=== PATIENT | male | born 1980 | race Two or more races ===

== ENCOUNTER 2022-11-17 15:42 | Outpatient (AMB) | payer SELFPAY ==
--- NOTE | 2022-11-17 15:55 | MHC.OFFWIV ---
Intake Vital Signs 11/17/22 15:58 BP 136/90 H Blood Pressure Location Rt brachial Position Sitting Pulse 74 Pulse Source Pulse Oximeter Pulse Oximetry (%) 98 Oxygen Delivery Method Room Air Intake Visit Reasons: [employer], Left Lower Arm Rash Intake Note: Patient here for possible poison mariama on left lower arm, he was doing some gardening work which was last thursday. He has tried topical ointment to help with irritation. Patient Tobacco Use Status: Never used Tobacco Allergies No Known Allergies Allergy (Verified 11/17/22 16:22) Medication List - Last Reconciled 11/17/22 by Juan Jaffe MD No Known Home Meds Do you need a note to return to daycare/school/sports/work: No HPI [employer], Left Lower Arm Rash HPI Details 42-year-old male presents to the office for a sick visit. Patient was working in his yd a few days ago and has broken out into a rash. The rash is all over his forearms and arms. Symptoms of itchiness present. [facility] Social History Patient Tobacco Use Status: Never used Tobacco Physical Exam Vital Signs: Last Vital Signs Pulse 74 11/17/22 15:58 BP 136/90 H 11/17/22 15:58 Pulse Ox 98 11/17/22 15:58 Oxygen Delivery Method Room Air 11/17/22 15:58 Skin Other: Erythematous vesicular rash on the forearm, torso and upper back. Assessment & Plan Assessment & Plan (1) Contact dermatitis: Code(s): L25.9 - Unspecified contact dermatitis, unspecified cause Plan: Tapering steroids prescribed. Patient was advised to use calamine lotion. If symptoms not better to follow-up here. Coding Level of Care Code Est Pt Level 3 (69122) Diagnoses Contact dermatitis L25.9
[2022-11-17 15:58] VITALS: BP 136/90; PULSE 74; O2SAT 98
== END 2022-11-17 16:28 | disposition home or self-care (01) ==
PROVIDERS: Visit Provider Internal Medicine
DX: L25.9 Unspecified contact dermatitis, unspecified cause (principal)
CPT/HCPCS: 99213